=== PATIENT | female | born 1960 | race Caucasian/White ===

== ENCOUNTER 2021-03-26 08:41 | Emergency (ER) | payer MEDICAID, OTHER ==
[~2021-03-26] VITALS: Ht 160 cm; Wt 83.0 kg
[2021-03-26] MEDS ORDERED: GLIP10TA10 PO (09:03)
[2021-03-26] MEDS ORDERED: ALPR1TAB2 PO (09:03)
[2021-03-26] MEDS ORDERED: DONE23TA3 MT (09:03)
[2021-03-26] MEDS ORDERED: DULA1.5P SQ (09:03)
[2021-03-26] MEDS ORDERED: ABIL10 PO (09:03)
[2021-03-26] MEDS ORDERED: MECL-217 PO (09:03)
[2021-03-26] MEDS ORDERED: METF-874 PO (09:03)
[2021-03-26] MEDS ORDERED: SIMV-43 PO (09:03)
[2021-03-26] MEDS ORDERED: DOXA1TAB2 PO (09:03)
[2021-03-26] MEDS ORDERED: CANA300T PO (09:03)
[2021-03-26] MEDS ORDERED: HYDR-4009 PO (09:03)
[2021-03-26] MEDS ORDERED: DULO60CA44 PO (09:03)
[2021-03-26] MEDS ORDERED: LISI20TA31 PO (09:03)
[2021-03-26] MEDS ORDERED: [UNRECOGNIZED DRUG - OTHER] (09:03)
[2021-03-26] MEDS ORDERED: HYDR25TA PO (09:03)
[2021-03-26] MEDS ORDERED: QUET200T PO (09:03)
[2021-03-26] MEDS ORDERED: CILO50TA PO (09:03)
[2021-03-26] MEDS ORDERED: CARI250T PO (09:03)
[2021-03-26] MEDS ORDERED: ASPI-1497 PO (09:03)
[2021-03-26 09:56] LABS: BASOPHILS % 0.7 % (0.0-2.0); EOSINOPHILS % 1.5 % (0.0-5.0); HEMATOCRIT. 39.4 % (36.0-48.0); HEMOGLOBIN. 13.2 g/dL (12.0-16.0); LYMPHOCYTES % 37.1 % (20.0-50.0); MEAN CORPUSCULAR HEMOGLOBIN 32.2 pg (28.0-32.0); MEAN CORPUSCULAR VOLUME 96.2 fL (81.0-99.0); MONOCYTES % 8.5 % (2.0-8.0); NEUTROPHILS % 52.2 % (40.0-76.0); PLATELET 170 x1000/uL (130-400); RED BLOOD CELL COUNT 4.09 mill/uL (4.2-5.4); RED CELL DISTRIBUTION WIDTH 12.5 % (11.6-14.6)
[2021-03-26 10:04] LABS: CHLORIDE 103 mEq/L (98-107)
[2021-03-26 10:16] LABS: T4 FREE 0.89 ng/dL (0.76-1.46)
[2021-03-26 10:31] LABS: CLARITY URINE CLEAR (CLEAR); COLOR URINE YELLOW (YELLOW); KETONES URINE NEGATIVE (NEGATIVE); LEUKOCYTE ESTERASE URINE NEGATIVE (NEGATIVE); NITRITE URINE NEGATIVE (NEGATIVE); OCCULT BLOOD URINE NEGATIVE (NEGATIVE); PH URINE 5.5 (4.5-8.0); PROTEIN URINE NEGATIVE (NEGATIVE); SPECIFIC GRAVITY URINE 1.009 (1.005-1.030); UROBILINOGEN URINE 0.2 E.U./dL (0.2-1.0)
[2021-03-26 11:40] VITALS: BP 131/67
== END 2021-03-26 12:36 | disposition home or self-care (01) ==
LOC: ER 08:41
DX: M79.89 Other specified soft tissue disorders (principal); I49.8 Other specified cardiac arrhythmias; I10 Essential (primary) hypertension; E78.5 Hyperlipidemia, unspecified; Z95.0 Presence of cardiac pacemaker; Z79.82 Long term (current) use of aspirin; Z96.649 Presence of unspecified artificial hip joint
CPT/HCPCS: 36415; 71045; 80053; 81003; 83880; 84439; 84443; 84481; 84484; 85025; 85379; 93005; 93971; 99285